=== PATIENT | female | born 1985 | race Caucasian/White ===

== ENCOUNTER 2022-11-22 12:26 | Emergency (ER) | payer BC, SELFPAY ==
[2022-11-22 13:42] VITALS: BP 147/97; PULSE 93; RESP 16; TEMP 37.1; O2SAT 99
--- NOTE | 2022-11-22 14:31 | ED.URI ---
HPI - URI/Sore Throat General Chief Complaint: Upper Respiratory Infection Stated Complaint: hards to swallow,sore throat Time Seen by Provider: 11/22/22 14:31 History of Present Illness HPI Narrative: 37-year-old female presented for complaint of sore throat, fever, and congestion. Onset yesterday. Unsure of temp readings at home, stating her checked while she was under the influence of NyQuil. Denies shortness of breath, wheezing, nausea, vomiting, diarrhea. Endorses her 3 children have tested positive and started treatment for strep throat. Related Data Home Medications Medication Instructions Recorded Confirmed escitalopram oxalate 10 mg tablet 10 mg PO DAILY 11/22/22 11/22/22 tolterodine 4 mg capsule,extended 4 mg PO DIRECTED 11/22/22 11/22/22 release 24 hr Allergies Allergy/AdvReac Type Severity Reaction Status Date / Time metronidazole Allergy Intermediate HIVES Unverified 11/22/22 14:32 Review of Systems Review of Systems: per HPI Exam Narrative: GENERAL: Ill-appearing, no acute distress. EYES: conjunctivae clear ENT: Mucous membranes moist. TMs pearly arreola with normal light reflex bilaterally; no tragal tenderness. Oropharynx erythematous Tonsils enlarged 2+ with exudate. No drooling, no hoarseness, no trismus, uvula midline. No tripod positioning, hot potato voice, or soft palate swelling. NECK: Supple. No lymphadenopathy CHEST: Clear to auscultation, breath sounds equal. No respiratory distress, speaks in full sentences. HEART: Regular rate and rhythm. No murmur heard. SKIN: Warm, dry, no rash. NEURO: Alert and oriented x3. Course Course Emergency Course: Patient is aware of diagnosis, understands and agrees to treatment plan. Anticipatory guidance given. Patient agrees to follow-up as directed and is aware of reasons to seek care at the emergency department. Portions of this record may have been created with voice recognition software Level of Care: Express Care Visit Vital Signs Vital signs: Vital Signs Temperature 98.8 F 11/22/22 13:42 Pulse Rate 93 11/22/22 13:42 Respiratory Rate 16 11/22/22 13:42 Blood Pressure 147/97 H 11/22/22 13:42 Pulse Oximetry 99 11/22/22 13:42 Temperature 98.8 F 11/22/22 13:42 Pulse Rate 93 11/22/22 13:42 Respiratory Rate 16 11/22/22 13:42 Blood Pressure 147/97 H 11/22/22 13:42 Pulse Oximetry 99 11/22/22 13:42 MDM - URI/Sore Throat MDM Narrative Medical decision making narrative: Given known exposure and PE, will treat for strep. Advise supportive treatments. Patient is appropriate for outpatient treatment and follow-up. Differential Diagnosis Differential diagnosis: Likely upper respiratory infection, viral infection and pharyngitis Discharge Plan Discharge Clinical Impression: Pharyngitis Qualifiers: Pharyngitis/tonsillitis etiology: unspecified etiology Qualified Code(s): J02.9 - Acute pharyngitis, unspecified Patient Disposition: Home, Self-Care Condition: Stable Instructions: Antibiotic Form, Strep Throat (ED) Additional Instructions: - Take the antibiotic as directed. Fever and sore throat typically resolve within one to three days. Most patients can return to work after 12 to 24 hours of antibiotic therapy, provided you are fever free and otherwise well. -Eat and drink things that are easy to swallow, like soft foods, cool liquids, tea with honey, or popsicles . -Salt water gargles and/or may use topical anesthetic ( Chloraseptic spray) or lozenges to relieve dryness or throat pain -Alternate Tylenol and ibuprofen as needed for pain and fever as directed. -Frequent hand washing or hand injection specialist is one of the best ways to prevent spread of infection. Throw away the toothbrush after 24hours of antibiotic. -Follow up with primary care provider in 2-3 days if condition is not improving -Go to the ER if you have trouble breathing, cannot drink enough fluids, have muffled voice o
== END 2022-11-22 14:41 | disposition home or self-care (01) ==
PROVIDERS: Emergency Provider Nurse Practitioner Family
DX: J02.9 Acute pharyngitis, unspecified (principal)
CPT/HCPCS: 99203; G0463

== ENCOUNTER 2023-01-31 12:02 | Emergency (ER) | payer BC, SELFPAY ==
--- NOTE | 2023-01-31 12:06 | ED.URI ---
HPI - URI/Sore Throat General Chief Complaint: Upper Respiratory Infection Stated Complaint: sore throat Time Seen by Provider: 01/31/23 12:07 Source: patient and RN notes reviewed History of Present Illness HPI Narrative: Patient is a 37-year-old female presents to urgent care with complaints of fever and sore throat that started this morning. Patient states her daughter's been complaining of a sore throat and also has a fever and she is concerned about strep. Patient states her temperature was a 100? F and she did not take anything for her fever. Denies any nausea or vomiting or other upper respiratory complaints. No acute distress noted. Patient aware of the plan of care. Some parts of this dictation were generated by voice recognition software and may contain typographical and/or grammatical inaccuracies. Related Data Home Medications Medication Instructions Recorded Confirmed escitalopram oxalate 10 mg tablet 10 mg PO DAILY 11/22/22 01/31/23 tolterodine 4 mg capsule,extended 4 mg PO DIRECTED 11/22/22 01/31/23 release 24 hr Allergies Allergy/AdvReac Type Severity Reaction Status Date / Time metronidazole Allergy Intermediate HIVES Verified 01/31/23 12:12 Review of Systems Review of Systems: CONSTITUTIONAL: Reports of fever EYES: Denies visual changes, redness, or discharge. ENT: Denies rhinorrhea, congestion, otalgia. Reports a sore throat CARDIOVASCULAR: Denies chest pain, palpitations, or edema. RESPIRATORY: Denies cough or dyspnea. GASTROINTESTINAL: Denies abdominal pain, nausea, vomiting, or diarrhea. GENITOURINARY: Denies dysuria or hematuria. SKIN: Denies rash or itching. MUSCULOSKELETAL: Denies back pain, joint pain, or myalgia. NEUROLOGIC: Denies headache, numbness, or weakness. All other systems reviewed are negative, except as documented in HPI. PMFSH Comments At the time of my signature, I reviewed and agree with the nursing past medical, surgical, social, and family history. There is no relevant family history pertinent to the patient complaint. Exam Narrative: GENERAL: This is a well-nourished, well-developed patient, in no apparent distress. HEAD: normocephalic, atraumatic. EYES: PERRL. Sclera clear/white. Vision is grossly intact. EARS: External ears normal, auditory canals clear and without drainage, TMs normal without perforation. Hearing grossly intact. NOSE: External nose normal with no obvious nasal discharge, nares without redness, no rhinorrhea. THROAT: Mucous membranes moist, posterior pharynx clear. Mild postnasal drainage NECK: Neck supple, non-tender without lymphadenopathy RESPIRATORY: Clear to auscultation. Breath sounds equal bilaterally. No wheezes, rales, or rhonchi. SKIN: warm, intact with no suspicious lesions or rash, good texture and turgor. NEURO: awake, alert, and oriented to person, place and time. There were no obvious focal neurologic abnormalities. EXTREMITIES: No clubbing, cyanosis, or edema. Course Course Level of Care: Express Care Visit Vital Signs Vital signs: Vital Signs Temperature 98.6 F 01/31/23 12:12 Pulse Rate 72 01/31/23 12:12 Respiratory Rate 16 01/31/23 12:12 Blood Pressure 121/73 01/31/23 12:12 Pulse Oximetry 99 01/31/23 12:12 Oxygen Delivery Room Air 01/31/23 12:12 Temperature 98.6 F 01/31/23 12:12 Pulse Rate 72 01/31/23 12:12 Respiratory Rate 16 01/31/23 12:12 Blood Pressure 121/73 01/31/23 12:12 Pulse Oximetry 99 01/31/23 12:12 Oxygen Delivery Room Air 01/31/23 12:12 Reviewed MDM - URI/Sore Throat MDM Narrative Medical decision making narrative: Reviewed lab results with the patient. She is aware that her strep swab was negative. However due to exposure and symptoms, will treat to cover strep. We will culture strep swab and if you wish to call on results, weight approximately 2 days. We will not be calling for results of your strep considering you have been treated. Use Tylenol/ibupr
[2023-01-31 12:12] VITALS: BP 121/73; PULSE 72; RESP 16; TEMP 37; O2SAT 99
== END 2023-01-31 13:03 | disposition home or self-care (01) ==
PROVIDERS: Emergency Provider Nurse Practitioner Family
DX: J02.9 Acute pharyngitis, unspecified (principal); Z20.818 Contact with and (suspected) exposure to other bacterial communicable diseases
CPT/HCPCS: 87081; 87880; 99213; G0463

== ENCOUNTER 2023-07-10 00:29 | Day surgery (SDC) | payer BC, SELFPAY ==
[2023-06-29 11:17] VITALS: BMI 39.0
[2023-07-10 09:32] VITALS: BP 144/89; PULSE 70; RESP 19; TEMP 36.5; O2SAT 98
[2023-07-10] MEDS: LACTATED RINGERS 1,000 ML 150 ML IV CONT (09:47)
--- NOTE | 2023-07-10 09:56 | P.PNAN_ITS ---
Anes - Initial Pre Proc Eval Procedure: Operation Date: 07/10/23 10:45 Proposed Procedures p Colonoscopy - Marshal Barry MD Date/Time: 07/10/23 09:56 Surgeon: Marshal Barry MD Pre Op Diagnosis: family hx colon ca, family hx colon polyps Patient Data Age: 37 Gender: F Height: 1.6 m Weight: 100.2 kg Last Vital Signs Temp 97.7 F 07/10/23 09:32 Pulse 70 07/10/23 09:32 Resp 19 07/10/23 09:32 BP 144/89 H 07/10/23 09:32 Pulse Ox 98 07/10/23 09:32 O2 Del Method Room Air 07/10/23 09:32 Allergies Allergy/AdvReac Type Severity Reaction Status Date / Time metronidazole Allergy Intermediate HIVES Verified 07/10/23 09:31 Home Medications Medication Instructions Recorded Confirmed Type escitalopram oxalate 10 mg tablet 10 mg PO DAILY 11/22/22 06/29/23 History tolterodine 4 mg capsule,extended 4 mg PO DIRECTED 11/22/22 06/29/23 History release 24 hr cetirizine 5 mg tablet 5 mg PO DAILY 06/29/23 06/29/23 History cholecalciferol (vitamin D3) 50 50 mcg PO DAILY 06/29/23 06/29/23 History mcg (2,000 unit) capsule (Vitamin D3) Patient hx anesthesia problems: none Family hx anesthesia problems: none Results Review: All pre-operative results and documents have been reviewed as part of the pre- operative evaluation. [facility] Social History Social History Spiritual care concerns: No Anes - Eval Final PreProcedure Day of Procedure 07/10/23 09:56 Patient weight: morbidly obese Heart: regular rate and rhythm Lungs: clear to auscultation Airway: Mallampati scale class II Neurological: alert and oriented Last oral intake: >/= 8 hours ASA classification: III Emergent: no Anesthetic plan: proceed Anesthesia type and monitoring: general GIVS and standard monitoring Results Review: All pre-operative results and documents have been reviewed as part of the pre- operative evaluation. Informed Consent: The patient's anesthetic plan and its attendant risks and benefits were discussed with the patient/family/POA. Questions were solicited and answers provided to the satisfaction of the patient/family/POA.
--- NOTE | 2023-07-10 10:10 | PM.HPGS ---
History of Present Illness History of Present Illness Consent: Risks, benefits, and alternatives have been discussed and questions answered. Patient agrees to proceed with procedure. Chief complaint: family hx colon ca, family hx colon polyps Narrative: Nya Lo is a 37 year old female here for first colonoscopy, father and grandparent had colon cancer Review of Systems Constitutional: Constitutional: Denies headache(s) and Denies weakness Eyes: Eyes: Denies blurry vision ENT: Reports Normal hearing present, Denies headache(s) and Denies neck pain Cardiovascular: Cardiovascular: Denies chest pain and Denies dyspnea Respiratory: Respiratory: Denies dyspnea Gastrointestinal: Gastrointestinal: Reports no additional gastrointestinal complaints Genitourinary: Genitourinary: Denies dysuria Musculoskeletal: Musculoskeletal: Denies neck pain Integumentary/Breasts: Skin/Breast: Denies dry skin Neurologic: Reports Normal hearing present, Denies headache(s) and Denies weakness Psychiatric: Psychiatric: Denies anxiety Endocrine: Endocrine: Denies change in body appearance Hematologic/Lymphatic: Hematologic/Lymphatic: Denies easy bleeding Allergic/Immunologic: Allergic/Immunologic: Denies urticaria [facility] Past Medical History Medical History (Updated 07/10/23 @ 10:11 by Marshal Barry MD) Family history of colon cancer Social History Social History Spiritual care concerns: No Meds Home Medications and Allergies Home Medications Medication Instructions Recorded Confirmed Type escitalopram oxalate 10 mg tablet 10 mg PO DAILY 11/22/22 06/29/23 History tolterodine 4 mg capsule,extended 4 mg PO DIRECTED 11/22/22 06/29/23 History release 24 hr cetirizine 5 mg tablet 5 mg PO DAILY 06/29/23 06/29/23 History cholecalciferol (vitamin D3) 50 50 mcg PO DAILY 06/29/23 06/29/23 History mcg (2,000 unit) capsule (Vitamin D3) Allergies Allergy/AdvReac Type Severity Reaction Status Date / Time metronidazole Allergy Intermediate HIVES Verified 07/10/23 09:31 Vital Signs Vital Signs - 24 hr 07/10/23 09:32 Temperature 97.7 F Pulse Rate 70 Respiratory Rate 19 Blood Pressure 144/89 H Pulse Oximetry 98 Oxygen Delivery Room Air Exam Const: General: comfortable and no acute distress HENMT: Face/Nose/Sinus: Normal nares present Eyes: General: appearance normal, both eyes and all related structures Neck: Neck: no JVD Resp: Auscultation: clear to auscultation bilaterally Cardio: Rate: regular rate Rhythm: regular rhythm GI: Inspection: non-distended GI Palp: Yes Soft to palpation Skin: General skin exam: normal color Neuro: General: gait normal Speech: normal speech Extrem: General: normal to inspection Psych: Mental Status: mental status grossly normal Assessment and Plan Assessment and plan (1) Family history of colon cancer: Code(s): Z80.0 - Family history of malignant neoplasm of digestive organs Status: Acute Assessment and Plan: colonoscopy
[2023-07-10 10:24] VITALS: BP 131/75; PULSE 83; RESP 18; O2SAT 99
[2023-07-10 10:34] VITALS: BP 127/83; PULSE 70; RESP 18; O2SAT 99
[2023-07-10 10:44] VITALS: BP 128/84; PULSE 79; RESP 19; O2SAT 99
== END 2023-07-10 10:57 | disposition home or self-care (01) ==
PROVIDERS: Visit Provider Internal Medicine Gastroenterology
PROC: 0DJD8ZZ Inspection of Lower Intestinal Tract, Via Natural or Artificial Opening Endoscopic (ICD-10-PCS; CPT 45378; principal; 2023-07-10 10:45)
DX: Z12.11 Encounter for screening for malignant neoplasm of colon (principal); K64.8 Other hemorrhoids; Z83.71 Family history of colonic polyps; Z80.0 Family history of malignant neoplasm of digestive organs; E66.01 Morbid (severe) obesity due to excess calories; Z68.39 Body mass index [BMI] 39.0-39.9, adult
CPT/HCPCS: 45378; J2704; J7120